=== PATIENT | male | born 2000 | race American Indian/Alaskan Native ===

== ENCOUNTER 2021-05-11 11:50 | Emergency (ER) | payer SELFPAY ==
[2021-05-11] MEDS ORDERED: HYDROcodone/ACETAMINOPHEN 5-325 MG TAB PO ONE (12:24)
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
[2021-05-11 13:04] VITALS: BP 122/69
== END 2021-05-11 13:42 | disposition home or self-care (01) ==
LOC: ED 11:50
DX: S01.81XA Laceration without foreign body of other part of head, initial encounter (principal); S20.212A Contusion of left front wall of thorax, initial encounter; S05.11XA Contusion of eyeball and orbital tissues, right eye, initial encounter; Y08.89XA Assault by other specified means, initial encounter; Y93.89 Activity, other specified; Y92.89 Other specified places as the place of occurrence of the external cause; Y99.8 Other external cause status
CPT/HCPCS: 70486; 71046; 99284